=== PATIENT | male | born 1995 | race Caucasian/White ===

== ENCOUNTER 2020-06-13 09:42 | Emergency (ER) | payer OTHER ==
[~2020-06-13] VITALS: Ht 188 cm; Wt 96.1 kg
[2020-06-13 10:54] LABS: MONO SCRN POSITIVE (NEGATIVE)
[2020-06-13] MEDS ORDERED: dexameTHASONE 20MG/5ML VIAL (J1100 PER 1MG) IV ONE (11:15)
[2020-06-13] MEDS ORDERED: KETOROLAC 30 MG/ML 1ML VIAL IV ONE (11:15)
[2020-06-13 11:51] LABS: HEMATOCRIT 39.2 % (42.0-52.0); HEMOGLOBIN 13.4 g/dl (13.5-17.5); MEAN CORPUSCULAR HEMOGLOBIN 30.6 pg (27.0-33.0); MEAN CORPUSCULAR HGB CONC 34.2 g/dl (32.0-36.5); MEAN CORPUSCULAR VOLUME 89.5 fl (80.0-96.0); PLATELET COUNT, AUTOMATED 193 10^3/uL (150-450); RED BLOOD COUNT 4.38 10^6/uL (4.30-6.10); WHITE BLOOD COUNT 10.6 10^3/uL (4.0-10.0)
[2020-06-13 12:20] LABS: ATYPICAL LYMPH 20 % (0-5); LYMPHOCYTES 14 % (16-44); MONOCYTES 13 % (0-5); NEUTROPHILS 53 % (28-66); PLATELET ESTIMATE NORMAL (NORMAL)
[2020-06-13 12:44] LABS: BLOOD UREA NITROGEN 7 MG/DL (7-18); CALCIUM LEVEL 9.9 MG/DL (8.5-10.1); CARBON DIOXIDE LEVEL 28 MEQ/L (21-32); CHLORIDE LEVEL 101 MEQ/L (98-107); CREATININE FOR GFR 0.86 MG/DL (0.70-1.30); GLOMERULAR FILTRATION RATE > 60.0 (>60); GLUCOSE, FASTING 92 MG/DL (70-100); POTASSIUM SERUM 4.6 MEQ/L (3.5-5.1); SODIUM LEVEL 133 MEQ/L (136-145)
[2020-06-13] MEDS ORDERED: PRED20TA PO (13:04)
[2020-06-13 13:16] VITALS: BP 136/78
== END 2020-06-13 13:17 | disposition home or self-care (01) ==
LOC: M ED 09:42
DX: B27.90 Infectious mononucleosis, unspecified without complication (principal)
CPT/HCPCS: 80047; 80048; 85025; 86308; 87804; 87880; 96374; 96375; 99284; J1100; J1885